=== PATIENT | male | born 1950 | race Caucasian/White ===

== ENCOUNTER 2016-09-21 17:20 | Observation (INO) | payer OTHER ==
[2016-09-21] MEDS ORDERED: Sodium Chloride 0.9% 1000 ML 1,000 ML IV STA (17:49)
[2016-09-21] MEDS ORDERED: TYLENOL 325 MG PO ONE (17:49)
[2016-09-21] MEDS ORDERED: SUBLIMAZE 100 MCG/2 ML IV ONE (17:49)
[2016-09-21] MEDS ORDERED: ROCEPHIN 1 Gm-D5w 50 ml Bag** 50 ML IV ONE ×2 (17:52→18:01)
[2016-09-21] MEDS ORDERED: Sodium Chloride 0.9% 1000 ML 1,000 ML ONE (17:55)
[2016-09-21] MEDS ORDERED: SUBLIMAZE 100 MCG/2 ML ONE (17:55)
[2016-09-21] MEDS ORDERED: TYLENOL 325 MG ONE (17:55)
--- NOTE | 2016-09-21 18:01 | ERPHSYRPT ---
- History of Present Illness Time Seen by Provider: 09/21/16 17:41 Source: patient (Poor Historian) Patient Subjective Stated Complaint: PT IS POOR HISTORIAN, AND STATES HE HAS HAD PAIN FOR A WHILE NOW, PAIN TO NECK,LEFT HIP,BOTH KNEES, WITH FEVER FOR OVER 2 MONTHS OFF AND ON, DRY HEAVES Triage Nursing Assessment: PT ALERT, DISHOVLED, SKIN W/D PINK,HAS TREMORS TO BODY WHICH PT STATES IS NORMAL FOR HIM. MOVES ALL EXT WELL, NO EDEMA NOTED Physician History: CC: chills HX: 66 y/o patient without a local doctor. He is a vague historian. 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 He uses THC but none in past week. He has body aches with neck pain, hip pain. He has chills. Maybe fever. No fall or injury. Some cough. He has weight loss. No hemoptysis. No abd pain. He is shaky. Timing/Duration: week(s) Severity: severe Allergies/Adverse Reactions: No Known Drug Allergies Allergy (Verified 09/21/16 17:43) Home Medications: No Home Meds 05/26/15 [History] Hx Tetanus, Diphtheria Vaccination/Date Given: No Hx Influenza Vaccination/Date Given: No Hx Pneumococcal Vaccination/Date Given: No Immunizations Up to Date: Yes - Review of Systems Constitutional: Fever, Chills, Malaise, Weakness Eyes: No Symptoms Ears, Nose, & Throat: No Throat Pain Respiratory: Cough (minimal), No Dyspnea Cardiac: No Chest Pain Abdominal/Gastrointestinal: No Abdominal Pain, No Nausea, No Vomiting, No Diarrhea Genitourinary Symptoms: Hesitancy, No Dysuria, No Hematuria, No Incontinence, No Flank Pain, No Testicle Pain Musculoskeletal: Neck Pain, No Back Pain, No Fall, No Injury Skin: No Rash Neurological: No Focal Weakness, No Headache, No Parasthesia All Other Systems: Reviewed and Negative - Past Medical History Neurological History: No Pertinent History ENT History: No Pertinent History Cardiac History: No Pertinent History Respiratory History: COPD Endocrine Medical History: No Pertinent History Musculoskeletal History: No Pertinent History GI Medical History: No Pertinent History History: No Pertinent History Psycho-Social History: Anxiety Male Reproductive Disorders: No Pertinent History - Past Surgical History Past Surgical History: No - Social History Smoking Status: Current every day smoker How long have you smoked: 45 yrs Exposure to second hand smoke: Yes Drug Use: marijuana Patient Lives Alone: Yes - Nursing Vital Signs Nursing Vital Signs: Initial Vital Signs Temperature 102.3 F Temperature Source Oral Pulse Rate 107 Respiratory Rate 16 Blood Pressure [Right Arm] 140/79 Pain Intensity 4 - Physical Exam General Appearance: alert, cachetic, other (shaky) Eye Exam: PERRL/EOMI, No scleral icterus Ears, Nose, Throat Exam: normal ENT inspection, moist mucous membranes Neck Exam: normal inspection, non-tender, supple, No meningismus Respiratory Exam: diminished breath sounds Cardiovascular Exam: regular rate/rhythm, No murmur, No friction rub, No gallop Gastrointestinal/Abdomen Exam: soft, No tenderness, No distention, No mass, No guarding Male Genitalia Exam: normal genitalia, prostate enlargement (rather large and tender but smooth), No testicular tenderness Rectal Exam: normal rectal tone Back Exam: No CVA tenderness, No vertebral tenderness Extremity Exam: normal inspection, normal range of motion Neurologic Exam: alert, oriented x 3, cooperative, hvac technician II-XII nml as tested, sensation nml, No motor deficits Skin Exam: other (hot), No rash SpO2 Interpretation: normal SpO2: 95 Oxygen Delivery: Room Air - Course Nursing assessment & vital signs reviewed: Yes EKG Interpreted by Me: RATE (105), Sinus Tach, Q-wave (inferior), Non-specific ST Changes - Radiology Exams cxr X-ray Interpretation: Reviewed by me (COPD, no pneumonia) Ordered Tests: Active Orders 24 hr Category Date Time Status Clean Catch Urine Specimen STAT Care 09/21/16 17:49 Active EKG-ER Only STAT Care 09/21/16 17:49 Active IV Insertion STAT Care 09/21/16 17:49 Active CHEST 2 VIEWS (PA AND LAT) Stat Exams 09/21/16 17:50 Taken BLOOD CULTURE Stat Lab 09/21/16 18:15 Received CBC W DIFF Stat Lab 09/21/16 18:10 Completed CMP Stat Lab 09/21/16 18:10 Completed CULTURE,URINE Stat Lab 09/21/16 17:49 Ordered Ethyl Alcohol,Urine Stat Lab 09/21/16 17:58 Completed Lactic Acid Stat Lab 09/21/16 17:49 Completed Manual Differential NC Stat Lab 09/21/16 18:10 Completed PROTIME WITH INR Stat Lab 09/21/16 18:10 Completed PTT Stat Lab 09/21/16 18:10 Completed TROPONIN Stat Lab 09/21/16 18:10 Completed UA W/ MICROSCOPIC Stat Lab 09/21/16 17:49 Completed Urine Triage Profile Stat Lab 09/21/16 17:58 Completed Medication Summary Discontinued Medications Generic Name Dose Route Start Last Admin Trade Name Lory PRN Reason Stop Dose Admin Acetaminophen 650 mg 09/21/16 17:49 09/21/16 17:59 Tylenol 325 Mg PO 09/21/16 17:50 650 mg STAT ONE Administration Acetaminophen Confirm 09/21/16 17:55 Tylenol 325 Mg Administered 09/21/16 17:56 Dose 650 mg .ROUTE .STK-MED ONE Fentanyl Citrate 50 mcg 09/21/16 17:49 09/21/16 17:59 Sublimaze 100 Mcg/2 Ml IV 09/21/16 17:50 50 mcg STAT ONE Administration Fentanyl Citrate Confirm 09/21/16 17:55 Sublimaze 100 Mcg/2 Ml Administered 09/21/16 17:56 Dose 100 mcg .ROUTE .STK-MED ONE Hydromorphone HCl 1 mg 09/21/16 18:48 09/21/16 19:24 Hydromorphone 1 Mg/Ml Ampule IV 09/21/16 18:49 1 mg STAT ONE Administration Hydromorphone HCl Confirm 09/21/16 19:06 Hydromorphone 1 Mg/Ml Ampule Administered 09/21/16 19:07 Dose 1 mg .ROUTE .STK-MED ONE Sodium Chloride 1,000 mls @ 999 mls/hr 09/21/16 17:49 09/21/16 17:59 Sodium Chloride 0.9% 1000 Ml IV 09/21/16 18:49 999 mls/hr .Q1H1M STA Administration Ceftriaxone Sodium/Dextrose 50 mls @ 100 mls/hr 09/21/16 17:52 09/21/16 18:04 Rocephin 1 Gm-D5w 50 Ml Bag IV 09/21/16 18:21 100 mls/hr STAT ONE Administration Sodium Chloride Confirm 09/21/16 17:55 Sodium Chloride 0.9% 1000 Ml Administered 09/21/16 17:56 Dose 1,000 mls @ ud .ROUTE .STK-MED ONE Ceftriaxone Sodium/Dextrose Confirm 09/21/16 18:01 Rocephin 1 Gm-D5w 50 Ml Bag Administered 09/21/16 18:02 Dose 50 mls @ IV .STK-MED ONE Lab/Rad Data: Laboratory Result Diagrams 09/21/16 18:10 09/21/16 18:10 Laboratory Results 09/21/16 09/21/16 09/21/16 Range/Units 18:10 18:10 18:10 WBC 7.6 (4.0-10.5) K/mm3 RBC 4.21 (4.1-5.6) M/mm3 Hgb 13.1 (12.5-18.0) gm/dl Hct 36.9 L (42-50) % MCV 87.6 (78-100) fl MCH 31.1 (26-32) pg MCHC 35.5 (32-36) g/dl RDW 13.2 (11.5-14.0) % Plt Count 54 L (150-450) K/mm3 MPV 13.5 H (6-9.5) fl INR 1.09 (0.8-3.0) APTT 31.1 (24.1-36.1) SECONDS Sodium 121 L (136-145) mEq/L Potassium 4.3 (3.5-5.1) mEq/L Chloride 87 L (98-107) mEq/L Carbon Dioxide 26.1 (21-32) mEq/L Anion Gap 12.1 (5-15) MEQ/L BUN 18 (9-20) mg/dL Creatinine 1.02 (0.55-1.30) mg/dl Estimated GFR > 60 ML/MIN Glucose 123 H (70-110) MG/DL Lactic Acid (0.4-2.0) Calcium 8.4 L (8.5-10.1) mg/dL Total Bilirubin 0.7 (0.2-1.0) mg/dL AST 57 H (15-37) U/L ALT 38 (12-78) U/L Alkaline Phosphatase 71 (46-116) U/L Troponin I < 0.017 (0.000-0.056) ng/ml Serum Total Protein 6.2 L (6.4-8.2) gm/dL Albumin 2.9 L (3.4-5.0) g/dL Ur Collection Type Urine Color (YELLOW) Urine Appearance (CLEAR) Urine pH (5-6) Ur Specific [place] (1.005-1.025) Urine Protein (Negative) Urine Glucose (UA) (NEGATIVE) mg/dL Urine Ketones (NEGATIVE) Urine Nitrite (NEGATIVE) Urine Bilirubin (NEGATIVE) Urine Urobilinogen (0-1) mg/dL Urine WBC (Auto) (NEGATIVE) Urine RBC (Auto) (0-5) Vladimir/ul Urine Microscopic RBC (0-2) /HPF Urine Microscopic WBC (0-5) /HPF Ur Epithelial Cells (FEW) /HPF Urine Bacteria (NEGATIVE) /HPF Urine Opiates Level (NEGATIVE) Ur Methadone (NEGATIVE) Urine Barbiturates (NEGATIVE) Ur Phencyclidine (PCP) (NEGATIVE) Urine Amphetamine (NEGATIVE) U Benzodiazepine Level (NEGATIVE) Urine Cocaine (NEGATIVE) Urine Marijuana (THC) (NEGATIVE) Urine Ethyl Alcohol (0.00-20) mg/dl Specimen Received 09/21/16 09/21/16 09/21/16 Range/Units 17:58 17:58 17:49 WBC (4.0-10.5) K/mm3 RBC (4.1-5.6) M/mm3 Hgb (12.5-18.0) gm/dl Hct (42-50) % MCV (78-100) fl MCH (26-32) pg MCHC (32-36) g/dl RDW (11.5-14.0) % Plt Count (150-450) K/mm3 MPV (6-9.5) fl INR (0.8-3.0) APTT (24.1-36.1) SECONDS Sodium (136-145) mEq/L Potassium (3.5-5.1) mEq/L Chloride (98-107) mEq/L Carbon Dioxide (21-32) mEq/L Anion Gap (5-15) MEQ/L BUN (9-20) mg/dL Creatinine (0.55-1.30) mg/dl Estimated GFR ML/MIN Glucose (70-110) MG/DL Lactic Acid 1.4 (0.4-2.0) Calcium (8.5-10.1) mg/dL Total Bilirubin (0.2-1.0) mg/dL AST (15-37) U/L ALT (12-78) U/L Alkaline Phosphatase (46-116) U/L Troponin I (0.000-0.056) ng/ml Serum Total Protein (6.4-8.2) gm/dL Albumin (3.4-5.0) g/dL Ur Collection Type Urine Color (YELLOW) Urine Appearance (CLEAR) Urine pH 7.0 (5-6) Ur Specific [place] (1.005-1.025) Urine Protein (Negative) Urine Glucose (UA) (NEGATIVE) mg/dL Urine Ketones (NEGATIVE) Urine Nitrite (NEGATIVE) Urine Bilirubin (NEGATIVE) Urine Urobilinogen (0-1) mg/dL Urine WBC (Auto) (NEGATIVE) Urine RBC (Auto) (0-5) Vladimir/ul Urine Microscopic RBC (0-2) /HPF Urine Microscopic WBC (0-5) /HPF Ur Epithelial Cells (FEW) /HPF Urine Bacteria (NEGATIVE) /HPF Urine Opiates Level NEG. (NEGATIVE) Ur Methadone NEG. (NEGATIVE) Urine Barbiturates NEG. (NEGATIVE) Ur Phencyclidine (PCP) NEG. (NEGATIVE) Urine Amphetamine NEG. (NEGATIVE) U Benzodiazepine Level NEG. (NEGATIVE) Urine Cocaine NEG. (NEGATIVE) Urine Marijuana (THC) POS. (NEGATIVE) Urine Ethyl Alcohol < 3 (0.00-20) mg/dl Specimen Received 09/21/16 Range/Units 17:49 WBC (4.0-10.5) K/mm3 RBC (4.1-5.6) M/mm3 Hgb (12.5-18.0) gm/dl Hct (42-50) % MCV (78-100) fl MCH (26-32) pg MCHC (32-36) g/dl RDW (11.5-14.0) % Plt Count (150-450) K/mm3 MPV (6-9.5) fl INR (0.8-3.0) APTT (24.1-36.1) SECONDS Sodium (136-145) mEq/L Potassium (3.5-5.1) mEq/L Chloride (98-107) mEq/L Carbon Dioxide (21-32) mEq/L Anion Gap (5-15) MEQ/L BUN (9-20) mg/dL Creatinine (0.55-1.30) mg/dl Estimated GFR ML/MIN Glucose (70-110) MG/DL Lactic Acid (0.4-2.0) Calcium (8.5-10.1) mg/dL Total Bilirubin (0.2-1.0) mg/dL AST (15-37) U/L ALT (12-78) U/L Alkaline Phosphatase (46-116) U/L Troponin I (0.000-0.056) ng/ml Serum Total Protein (6.4-8.2) gm/dL Albumin (3.4-5.0) g/dL Ur Collection Type CLEAN CATCH Urine Color YELLOW (YELLOW) Urine Appearance CLEAR (CLEAR) Urine pH 7.0 (5-6) Ur Specific [place] 1.020 (1.005-1.025) Urine Protein 100 (Negative) Urine Glucose (UA) NEGATIVE (NEGATIVE) mg/dL Urine Ketones NEGATIVE (NEGATIVE) Urine Nitrite NEGATIVE (NEGATIVE) Urine Bilirubin NEGATIVE (NEGATIVE) Urine Urobilinogen 1 (0-1) mg/dL Urine WBC (Auto) NEGATIVE (NEGATIVE) Urine RBC (Auto) SMALL (0-5) Vladimir/ul Urine Microscopic RBC 0-2 (0-2) /HPF Urine Microscopic WBC 0-2 (0-5) /HPF Ur Epithelial Cells RARE (FEW) /HPF Urine Bacteria RARE (NEGATIVE) /HPF Urine Opiates Level (NEGATIVE) Ur Methadone (NEGATIVE) Urine Barbiturates (NEGATIVE) Ur Phencyclidine (PCP) (NEGATIVE) Urine Amphetamine (NEGATIVE) U Benzodiazepine Level (NEGATIVE) Urine Cocaine (NEGATIVE) Urine Marijuana (THC) (NEGATIVE) Urine Ethyl Alcohol (0.00-20) mg/dl Specimen Received 09/21/16 1749 - Progress Progress Note: 09/21/16 18:03 Rectal temp 103. He likely has prostatitis or sepsis. Cultures ordered. Workup ordered. 09/21/16 19:29 Pt hyponatremic. Clinically has sepsis but labs reassuring. Called Dr Olena Lopez ( oc) and will place in observation. Counseled pt/family regarding: lab results, diagnosis, need for follow-up, rad results - Departure Time of Disposition: 19:30 Departure Disposition: Observation Clinical Impression: Fever, Sepsis, Hyponatremia Condition: Fair Critical Care Time: No
[2016-09-21 18:23] LABS: Mean Cell Volume 87.6 fl (78-100); Mean Corpuscular Hemoglobin 31.1 pg (26-32); Mean Platelet Volume 13.5 fl (6-9.5); Platelet Count 54 K/mm3 (150-450); Red Blood Count 4.21 M/mm3 (4.1-5.6); Red Cell Distribution Width 13.2 % (11.5-14.0); White Blood Count 7.6 K/mm3 (4.0-10.5)
[2016-09-21 18:36] LABS: INR 1.09 (0.8-3.0); PROTIME 12.2 SECONDS (8.83-12.87)
[2016-09-21 18:39] LABS: PTT 31.1 SECONDS (24.1-36.1)
[2016-09-21 18:47] LABS: ALBUMIN 2.9 g/dL (3.4-5.0); ALKALINE PHOSPHATASE 71 U/L (46-116); ANION GAP 12.1 MEQ/L (5-15); BILIRUBIN,TOTAL 0.7 mg/dL (0.2-1.0); BLOOD UREA NITROGEN 18 mg/dL (9-20); CHLORIDE 87 mEq/L (98-107); Carbon Dioxide 26.1 mEq/L (21-32); Glucose 123 MG/DL (70-110); Potassium 4.3 mEq/L (3.5-5.1); SGOT/AST 57 U/L (15-37); SGPT/ALT 38 U/L (12-78); SODIUM 121 mEq/L (136-145); Total Protein 6.2 gm/dL (6.4-8.2)
[2016-09-21] MEDS ORDERED: Hydromorphone 1 mg/ml Ampule IV ONE (18:48)
[2016-09-21 18:50] LABS: Collection Type CLEAN CATCH
[2016-09-21 18:51] LABS: Bacteria RARE /HPF (NEGATIVE); COMPLETE URINE MICROSCOPIC? YES; Epithelial Cells RARE /HPF (FEW); WBC 0-2 /HPF (0-5)
[2016-09-21 18:52] LABS: TROPONIN < 0.017 ng/ml (0.000-0.056)
[2016-09-21] MEDS ORDERED: Hydromorphone 1 mg/ml Ampule ONE (19:06)
[2016-09-21 19:59] LABS: ATYPICAL LYMPHS 8 %; Total Cells Counted 100
[2016-09-21 20:00] LABS: Platelet Estimate DECREASED (NORMAL)
[2016-09-21] MEDS ORDERED: TYLENOL 325 MG PO PRN (20:07)
[2016-09-21] MEDS: Sodium Chloride 0.9% 1000 ML 1,000 ML IV SCH (20:16)
[2016-09-22] MEDS: MORPHINE SULFATE 4 MG INJ IV PRN ×4 (00:33→23:35)
[2016-09-22 06:04] LABS: ANION GAP 10.2 MEQ/L (5-15); BLOOD UREA NITROGEN 13 mg/dL (9-20); CHLORIDE 92 mEq/L (98-107); Carbon Dioxide 26.4 mEq/L (21-32); Glucose 100 MG/DL (70-110); Potassium 3.9 mEq/L (3.5-5.1); SODIUM 125 mEq/L (136-145)
[2016-09-22 06:06] LABS: Mean Cell Volume 88.1 fl (78-100); Mean Corpuscular Hemoglobin 30.9 pg (26-32); Mean Platelet Volume 13.1 fl (6-9.5); Platelet Count 51 K/mm3 (150-450); Red Blood Count 3.85 M/mm3 (4.1-5.6); Red Cell Distribution Width 13.2 % (11.5-14.0); White Blood Count 6.8 K/mm3 (4.0-10.5)
[2016-09-22 06:33] LABS: Total Cells Counted 100
[2016-09-22 06:35] LABS: ANISOCYTOSIS 1+; Platelet Estimate DECREASED (NORMAL); Poikilocytosis 1+
[2016-09-22] MEDS: Sodium Chloride 0.9% 1000 ML 1,000 ML IV SCH ×2 (07:29→23:53)
--- NOTE | 2016-09-22 08:23 | PCM.HP ---
History of Present Illness - Chief Complaint Chief Complaint: fever, weakness Date: 09/22/16 History of Present Illness: is a 66 year old male. who is a very poor historian it appears but states he thinks he has been having worse back ache and hip pain and shoulder pain for the last 3 months and thinks he has had fevers for that long too. He states he intermittently had some trouble eating. He is unable to state what was different yesterday to bring him in. He denies any current, cough, chest pain, rash, enlarged nodules or trouble urinating. He does admit to significant alcohol intake in the past but denies any in several years. He has had recent tick bites - Review of Systems Constitutional: Fever, Chills, Fatigue, Lethargy Eyes: No Symptoms Ears, Nose, & Throat: No Symptoms Respiratory: No Cough, No Short Of Breath Cardiac: No Chest Pain, No Edema, No Syncope Abdominal/Gastrointestinal: No Abdominal Pain, No Nausea, No Vomiting, No Diarrhea Genitourinary Symptoms: No Dysuria Musculoskeletal: Arthralgias, Back Pain, No Neck Pain Skin: No Rash Neurological: No Dizziness, No Focal Weakness, No Sensory Changes Psychological: No Symptoms Endocrine: No Symptoms Hematologic/Lymphatic: No Symptoms Immunological/Allergic: No Symptoms Medications & Allergies Home Medications: Home Medication List Acetaminophen 325 mg [Tylenol 325 mg] 650 mg PO Q4HPRN PRN 09/21/16 [ History Confirmed 09/21/16] Allergies/Adverse Reactions: Allergies Allergy/AdvReac Type Severity Reaction Status Date / Time No Known Drug Allergies Allergy Verified 09/21/16 17:43 - Past Medical History Neurological History: No Pertinent History ENT History: No Pertinent History Cardiac History: No Pertinent History Respiratory History: COPD Endocrine Medical History: No Pertinent History Musculoskelatal History: No Pertinent History GI Medical History: No Pertinent History History: No Pertinent History Pyscho-Social History: Anxiety Male Reproductive Disorders: No Pertinent History - Past Surgical History Past Surgical History: No - Social History Smoking Status: Current every day smoker How long have you smoked: 50+years Exposure to second hand smoke: Yes Alcohol: None (previous heavy intake none in years) Drug Use: marijuana - Physical Exam Vital Signs: Vital Signs - 24 hr Temp Pulse Resp BP Pulse Ox 09/22/16 07:56 98.3 F 99 H 22 122/78 96 09/22/16 04:00 98.3 F 92 H 24 121/78 93 L 09/22/16 00:00 98.3 F 89 25 H 129/71 98 09/21/16 20:24 100.5 F 101 H 18 132/72 94 L 09/21/16 19:32 90 16 132/78 92 L 09/21/16 19:30 95 09/21/16 18:38 107 H 16 140/79 97 09/21/16 17:48 102.3 F 09/21/16 17:34 99.8 F 107 H 18 132/89 95 General Appearance: anxiety, other (he is fidgeting constatantly moving in the bed with a tremor bilateral hands.) Neurologic Exam: alert, oriented x 3, cooperative Eye Exam: PERRL/EOMI, No scleral icterus, No pale conjunctivae Ears, Nose, Throat Exam: moist mucous membranes Neck Exam: non-tender, supple Respiratory Exam: normal breath sounds, lungs clear, No respiratory distress Cardiovascular Exam: regular rate/rhythm, normal heart sounds, normal peripheral pulses, No murmur, No edema Gastrointestinal/Abdomen Exam: soft, normal bowel sounds, No tenderness, No distention Extremity Exam: normal inspection, No calf tenderness, No pedal edema Skin Exam: warm, dry, No rash Results - Labs Lab/Micro Results: Lab Results-Last 24 Hours 09/22/16 09/22/16 Range/Units 05:25 05:25 WBC 6.8 (4.0-10.5) K/mm3 RBC 3.85 L (4.1-5.6) M/mm3 Hgb 11.9 L (12.5-18.0) gm/dl Hct 33.9 L (42-50) % MCV 88.1 (78-100) fl MCH 30.9 (26-32) pg MCHC 35.1 (32-36) g/dl RDW 13.2 (11.5-14.0) % Plt Count 51 L (150-450) K/mm3 MPV 13.1 H (6-9.5) fl Segmented Neutrophils 61 (36.-66.) % Lymphocytes (Manual) 34 (24-44) % Monocytes (Manual) 5 (0.0-12.0) % Differential Comment ABNORMAL Platelet Estimate DECREASED (NORMAL) Poikilocytosis 1+ Anisocytosis 1+ Sodium 125 L (136-145) mEq/L Potassium 3.9 (3.5-5.1) mEq/L Chloride 92 L (98-107) mEq/L Carbon Dioxide 26.4 (21-32) mEq/L Anion Gap 10.2 (5-15) MEQ/L BUN 13 (9-20) mg/dL Creatinine 0.79 (0.55-1.30) mg/dl Estimated GFR > 60 ML/MIN Glucose 100 (70-110) MG/DL Calcium 8.0 L (8.5-10.1) mg/dL Assessment/Plan (1) Hyponatremia Current Visit: Yes Status: Acute Assessment & Plan: appears hypovolemic continue slow rehydration improved overnight monitor Na Code(s): E87.1 - HYPO-OSMOLALITY AND HYPONATREMIA (2) Fever Current Visit: Yes Status: Acute Assessment & Plan: unclear etiology rectal exam in ED was positive for large prostate with no nodules possible prostatitis check HIV, GC, CT repeat labs in am continue coverage with Rocephin afebrile since 8pm last night given pains in back and hips check x-ray but movement is all normal and there is no point tenderness. His history is very tangential making it difficult to find a clear starting time and symptom history however there is potential for tick born disease and the thrombocytopenia also could be a concern with this continue the Rocephin for now as he is clinically appears to have been improving and monitor and recheck labs will hold off specific serologies now while trying to tease out the history a little further. Code(s): R50.9 - FEVER, UNSPECIFIED (3) COPD (chronic obstructive pulmonary disease) Current Visit: Yes Status: Chronic (4) Thrombocytopenia Current Visit: Yes Status: Acute Assessment & Plan: repeat am lab
--- NOTE | 2016-09-22 08:47 | XRAY ---
Indication: Fever, cough, and weight loss. Comparison: May 26, 2015. 2 view chest unchanged again hyperinflated with scattered calcified granulomas and right apical fibrosis/scarring. Heart is not enlarged. Bony thorax intact again with spinal degenerative changes. Impression: Stable nonacute chest with chronic features.
--- NOTE | 2016-09-22 09:28 | XRAY ---
Indication: Lumbar/hip pain. Fever. Comparison: None 2 views of the left and right hip demonstrates a few pelvic phleboliths. No other bony, articular, or soft tissue abnormalities.
--- NOTE | 2016-09-22 09:36 | XRAY ---
Indication: Lumbar and hip pain. Fever. Comparison: None 5 views of the lumbar spine demonstrate 5 lumbar vertebral segments in normal alignment with minimal multilevel anterior endplate spurring. Disc spaces maintained. No acute fracture, subluxation, or pars interarticularis defect. Minimal aortic calcifications. Impression: Nonacute lumbar spine with chronic features.
[2016-09-22] MEDS: ROCEPHIN 1 Gm-D5w 50 ml Bag** 50 ML IV SCH (10:07)
[2016-09-22] MEDS: ENOXAPARIN SODIUM SQ SCH (10:12)
[2016-09-22 18:07] LABS: CHLAMYDIA URINE NEGATIVE; GC URINE NEGATIVE
[2016-09-23] MEDS: MORPHINE SULFATE 4 MG INJ IV PRN ×4 (03:56→22:56)
[2016-09-23 04:16] LABS: Hepatits C Antibody by EIA Non Reactive (Non Reactive)
[2016-09-23 06:05] LABS: ANION GAP 9.5 MEQ/L (5-15); BLOOD UREA NITROGEN 9 mg/dL (9-20); CHLORIDE 91 mEq/L (98-107); Carbon Dioxide 27.7 mEq/L (21-32); Glucose 93 MG/DL (70-110); Potassium 3.7 mEq/L (3.5-5.1); SODIUM 125 mEq/L (136-145)
[2016-09-23 06:11] LABS: Mean Cell Volume 87.9 fl (78-100); Mean Platelet Volume 13.2 fl (6-9.5); Platelet Count 49 K/mm3 (150-450); Red Blood Count 3.79 M/mm3 (4.1-5.6); Red Cell Distribution Width 13.1 % (11.5-14.0); White Blood Count 6.4 K/mm3 (4.0-10.5)
[2016-09-23 06:15] LABS: Mean Corpuscular Hemoglobin 30.8 pg (26-32)
[2016-09-23 06:26] LABS: Hepatitis B Surface Ab.Quant <3.50 mIU/mL (0.00-8.49); Hepatits B Sur Ag Screen Non Reactive (Non Reactive)
--- NOTE | 2016-09-23 08:14 | PCM.NOTE ---
Date and Time: 09/23/16 08 Subjective Assessment: still some pains in hip and back otherwise feeling ok no fevers overnight still some weakness no new symptoms. Objective Exam General Appearance: no apparent distress Neurologic Exam: alert, oriented x 3, nml cerebellar function Skin Exam: warm, dry, No rash Eye Exam: PERRL, No scleral icterus Ears, Nose, Throat Exam: moist mucous membranes Neck Exam: non-tender, supple Respiratory Exam: normal breath sounds, lungs clear Cardiovascular Exam: regular rate/rhythm, normal heart sounds, No edema Gastrointestinal/Abdomen Exam: soft, normal bowel sounds, No tenderness Extremity Exam: normal inspection, No pedal edema OBJECTIVE DATA Vital Signs: Vital Signs - 24 hr Temp Pulse Resp BP Pulse Ox 09/23/16 07:05 98.7 F 90 20 131/81 98 09/23/16 04:00 98.5 F 99 H 15 116/77 93 L 09/23/16 00:00 98.9 F 93 H 16 122/76 96 09/22/16 20:00 99.0 F 98 H 15 141/77 95 09/22/16 16:00 98.5 F 82 20 106/59 97 09/22/16 12:00 98.1 F 94 H 20 107/70 96 Pain Assessment - Last Documented Pain Intensity 6 Pain Scale Used 0-10 Pain Scale Intake and Output: Intake & Output 09/20/16 09/21/16 09/22/16 09/23/16 11:59 11:59 11:59 11:59 Intake Total 1262 2122 Output Total 550 1100 Balance 712 1022 Weight 63.639 kg Lab Results: Lab Results-Last 24 Hours 09/22/16 09/22/16 09/22/16 Range/Units 08:21 08:46 08:46 WBC (4.0-10.5) K/mm3 RBC (4.1-5.6) M/mm3 Hgb (12.5-18.0) gm/dl Hct (42-50) % MCV (78-100) fl MCH (26-32) pg MCHC (32-36) g/dl RDW (11.5-14.0) % Plt Count (150-450) K/mm3 MPV (6-9.5) fl Sodium (136-145) mEq/L Potassium (3.5-5.1) mEq/L Chloride (98-107) mEq/L Carbon Dioxide (21-32) mEq/L Anion Gap (5-15) MEQ/L BUN (9-20) mg/dL Creatinine (0.55-1.30) mg/dl Estimated GFR ML/MIN Glucose (70-110) MG/DL Calcium (8.5-10.1) mg/dL RPR Nonreactive (Nonreactive) Ur Chlamydia DNA Probe NEGATIVE Urine GC DNA Probe NEGATIVE Hep Bs Antigen Non Reactive (Non Reactive) Hep Bs Antibody, Quant <3.50 (0.00-8.49) mIU/mL Hepatitis C Antibody Non Reactive (Non Reactive) HIV Ag/Ab Combo Qual Pending HIV Ag/Ab Interpret Pending HIV 1&2 Antibody Pending Slides for Path Review 09/23/16 09/23/16 Range/Units 05:13 05:13 WBC 6.4 (4.0-10.5) K/mm3 RBC 3.79 L (4.1-5.6) M/mm3 Hgb 11.7 L (12.5-18.0) gm/dl Hct 33.3 L (42-50) % MCV 87.9 (78-100) fl MCH 30.8 (26-32) pg MCHC 35.1 (32-36) g/dl RDW 13.1 (11.5-14.0) % Plt Count 49 L (150-450) K/mm3 MPV 13.2 H (6-9.5) fl Sodium 125 L (136-145) mEq/L Potassium 3.7 (3.5-5.1) mEq/L Chloride 91 L (98-107) mEq/L Carbon Dioxide 27.7 (21-32) mEq/L Anion Gap 9.5 (5-15) MEQ/L BUN 9 (9-20) mg/dL Creatinine 0.85 (0.55-1.30) mg/dl Estimated GFR > 60 ML/MIN Glucose 93 (70-110) MG/DL Calcium 7.9 L (8.5-10.1) mg/dL RPR (Nonreactive) Ur Chlamydia DNA Probe Urine GC DNA Probe Hep Bs Antigen (Non Reactive) Hep Bs Antibody, Quant (0.00-8.49) mIU/mL Hepatitis C Antibody (Non Reactive) HIV Ag/Ab Combo Qual HIV Ag/Ab Interpret HIV 1&2 Antibody Slides for Path Review YES Radiology Exams: Radiology Procedures Category Date Time Status HIP SUSY (4V) INCL PELV IF DONE Routine Exams 09/22/16 08:21 Completed LUMBAR COMPLETE (MIN 4 VIEWS) Routine Exams 09/22/16 08:21 Completed Assessment/Plan (1) Hyponatremia Current Visit: Yes Status: Acute Assessment & Plan: check urine Na, urea, creatinine, osmolality it appeared hypovolemic on arrival he reports he has craved salt his whole life and eats piles of it but recently tried to cut back to be healthier Code(s): E87.1 - HYPO-OSMOLALITY AND HYPONATREMIA (2) Fever Current Visit: Yes Status: Acute Assessment & Plan: afebrile for 36 hr now if remains afebrile will d/c home tomorrow if no new symptoms with 10 day coarse of doxy to cover for any potential tick born illness. Code(s): R50.9 - FEVER, UNSPECIFIED (3) COPD (chronic obstructive pulmonary disease) Current Visit: Yes Status: Chronic (4) Thrombocytopenia Current Visit: Yes Status: Acute Assessment & Plan: stable monitor further eval as outpatient
[2016-09-23] MEDS: ENOXAPARIN SODIUM SQ SCH (09:48)
[2016-09-23] MEDS: ROCEPHIN 1 Gm-D5w 50 ml Bag** 50 ML IV SCH (09:48)
[2016-09-23 10:09] LABS: Sodium, Urine 126.7 MMOL
[2016-09-23] MEDS: Sodium Chloride 0.9% 1000 ML 1,000 ML IV SCH ×2 (13:32→20:19)
[2016-09-23] MEDS ORDERED: Nicoderm CQ 21 MG TOP SCH ×2 (14:45→15:00)
[2016-09-23] MEDS ORDERED: Sodium Chloride 0.9% 1000 ML 2,000 ML IV STA (17:00)
[2016-09-23] MEDS: Flonase NASAL NS SCH (18:15)
[2016-09-24] MEDS: MORPHINE SULFATE 4 MG INJ IV PRN (03:15)
[2016-09-24 05:34] LABS: Mean Platelet Volume 12.6 fl (6-9.5); Platelet Count 53 K/mm3 (150-450); Red Blood Count 3.63 M/mm3 (4.1-5.6); Red Cell Distribution Width 13.5 % (11.5-14.0); White Blood Count 6.2 K/mm3 (4.0-10.5)
[2016-09-24 05:35] LABS: Urea Nitrogen Random Urine 519 mg/dL
[2016-09-24 05:37] LABS: Mean Corpuscular Hemoglobin 30.5 pg (26-32)
[2016-09-24 06:05] LABS: ANION GAP 9.5 MEQ/L (5-15); BLOOD UREA NITROGEN 9 mg/dL (9-20); CHLORIDE 96 mEq/L (98-107); Carbon Dioxide 28.6 mEq/L (21-32); Glucose 92 MG/DL (70-110); Potassium 3.7 mEq/L (3.5-5.1); SODIUM 130 mEq/L (136-145)
[2016-09-24 07:16] VITALS: BP 132/83; PULSE 78; O2SAT 97
--- NOTE | 2016-09-24 08:18 | PCM.DS ---
Discharge Summary Date of Admission: 09/21/16 20:06 Date of Discharge: 09/24/2016 Admitting Physician: JR OCONNOR Primary Care Provider: JR OCONNOR Allergies Allergies No Known Drug Allergies Allergy (Verified 09/21/16 17:43) Hospital Summary - Hospital Course Hospital Course: Mr. Dockery has no prior medical background but a previous history of alcohol and marijuana abuse but denied recent use of alcohol who presented with 3 months he stated of fever and arthralagias. He was unable to give specific time table or other symptoms or specific pain areas. He denied any rash but did say he has had multiple tick bites in the last month. He was found to be febrile, hyponatremic to 121 and have thrombocytopenia. Otherwise his labs and exam were rather unremarkable. He was started on Rocephin and iv hydration as he appeared hypovolemic but was only slow hydation at first. He remained afebrile after admission. His Na improved with just hydration from 121 to 130 at time of discharge his FeNa was 0.8%. We discussed need for further evaluation of his thrombocytopenia and hyponatremia f/u as an outpatient to rule out potential malignant cause to this. He is very anxious to go home as his symptoms have improved. Will have him complete a 10 day coarse of doxycycline with the fever and diffuse arthralagias and the thrombocytopenia to cover any potential tick born illness. - Vitals & Intake/Output Vital Signs: Vital Signs Temperature 98.1 F 09/24/16 07:15 Pulse Rate 78 09/24/16 07:15 Respiratory Rate 18 09/24/16 07:15 Blood Pressure 132/83 09/24/16 07:15 O2 Sat by Pulse Oximetry 97 09/24/16 07:15 Intake & Output: Intake & Output 09/21/16 09/22/16 09/23/16 09/24/16 11:59 11:59 11:59 11:59 Intake Total 1262 2122 2520 Output Total 550 1100 300 Balance 712 1022 2220 Weight 63.639 kg - Lab Result Diagrams: 09/24/16 05:15 09/24/16 05:15 Lab Results-Last 24 Hrs: Lab Results-Last 24 Hours 09/22/16 09/23/16 09/23/16 Range/Units 08:46 09:54 09:54 WBC (4.0-10.5) K/mm3 RBC (4.1-5.6) M/mm3 Hgb (12.5-18.0) gm/dl Hct (42-50) % MCV (78-100) fl MCH (26-32) pg MCHC (32-36) g/dl RDW (11.5-14.0) % Plt Count (150-450) K/mm3 MPV (6-9.5) fl Sodium (136-145) mEq/L Potassium (3.5-5.1) mEq/L Chloride (98-107) mEq/L Carbon Dioxide (21-32) mEq/L Anion Gap (5-15) MEQ/L BUN (9-20) mg/dL Creatinine (0.55-1.30) mg/dl Estimated GFR ML/MIN Glucose (70-110) MG/DL Calcium (8.5-10.1) mg/dL TSH 3rd Generation (0.358-3.740) mIU/L Urine Osmolality Pending Ur Random Creatinine 104.94 (30-125) MG/DL Ur Random Urea Nitrogn 519 mg/dL Urine Sodium 126.7 MMOL Hep Bs Antigen Non Reactive (Non Reactive) Hep Bs Antibody, Quant <3.50 (0.00-8.49) mIU/mL Hepatitis C Antibody Non Reactive (Non Reactive) HIV Ag/Ab Combo Qual Non Reactive (Non Reactive) HIV Ag/Ab Interpret See Result Note: HIV 1&2 Antibody Not Reportable Slides for Path Review 09/24/16 09/24/16 Range/Units 05:15 05:15 WBC 6.2 (4.0-10.5) K/mm3 RBC 3.63 L (4.1-5.6) M/mm3 Hgb 11.1 L (12.5-18.0) gm/dl Hct 32.3 L (42-50) % MCV 89.0 (78-100) fl MCH 30.5 (26-32) pg MCHC 34.4 (32-36) g/dl RDW 13.5 (11.5-14.0) % Plt Count 53 L (150-450) K/mm3 MPV 12.6 H (6-9.5) fl Sodium 130 L (136-145) mEq/L Potassium 3.7 (3.5-5.1) mEq/L Chloride 96 L (98-107) mEq/L Carbon Dioxide 28.6 (21-32) mEq/L Anion Gap 9.5 (5-15) MEQ/L BUN 9 (9-20) mg/dL Creatinine 0.74 (0.55-1.30) mg/dl Estimated GFR > 60 ML/MIN Glucose 92 (70-110) MG/DL Calcium 8.0 L (8.5-10.1) mg/dL TSH 3rd Generation 3.038 (0.358-3.740) mIU/L Urine Osmolality Ur Random Creatinine (30-125) MG/DL Ur Random Urea Nitrogn mg/dL Urine Sodium MMOL Hep Bs Antigen (Non Reactive) Hep Bs Antibody, Quant (0.00-8.49) mIU/mL Hepatitis C Antibody (Non Reactive) HIV Ag/Ab Combo Qual (Non Reactive) HIV Ag/Ab Interpret HIV 1&2 Antibody Slides for Path Review YES - Radiology Exams Ordered Rad Exams-Entire Visit: Radiology Procedures Category Date Time Status HIP SUSY (4V) INCL PELV IF DONE Routine Exams 09/22/16 08:21 Completed LUMBAR COMPLETE (MIN 4 VIEWS) Routine Exams 09/22/16 08:21 Completed - Procedures and Test Procedures and Tests throughout Hospitalization: Therapy Orders & Screens 09/21/16 20:52 Smoking Cessation Education ONCE Comment: Diagnosis: sepsis Smoking Status: Current every day smoker How long have you smoked: 50+years Do you dip or chew tobacco: No Discharge Exam General Appearance: no apparent distress, alert Neurologic Exam: oriented x 3, cooperative Skin Exam: warm, dry Eye Exam: No scleral icterus Ears, Nose, Throat Exam: moist mucous membranes Neck Exam: non-tender, supple Lymphatic Exam: No adenopathy Respiratory Exam: normal breath sounds, lungs clear Cardiovascular Exam: regular rate/rhythm, normal heart sounds Gastrointestinal/Abdomen Exam: soft, normal bowel sounds, No tenderness Extremity Exam: normal inspection, No parasthesia, No pedal edema Back Exam: normal inspection, No rash Final Diagnosis/Problem List - Final Discharge Diagnosis/Problem (1) Hyponatremia Current Visit: Yes Status: Acute (2) Fever Current Visit: Yes Status: Acute (3) COPD (chronic obstructive pulmonary disease) Current Visit: Yes Status: Chronic (4) Thrombocytopenia Current Visit: Yes Status: Acute - Discharge Discharge Date: 09/24/16 Disposition: Home, Self-Care Condition: Stable Prescriptions: New Doxycycline Hyclate 100 mg [Vibramycin 100 MG] 100 mg PO BID #20 tab Continue Acetaminophen 325 mg [Tylenol 325 mg] 650 mg PO Q4HPRN PRN PRN Reason: Pain And/Or Fever
[2016-09-24] MEDS: Flonase NASAL NS SCH (08:49)
[2016-09-24] MEDS: ENOXAPARIN SODIUM SQ SCH (08:50)
[2016-09-24 09:54] LABS: OSMOLALITY URINE 533 mOsm/kg
[2016-09-24] MEDS ORDERED: ROCEPHIN 1 Gm-D5w 50 ml Bag** 1 G/50 ML IVPB IV SCH (10:00)
== END 2016-09-24 09:13 | disposition home or self-care (01) ==
LOC: ED 17:20 → MED SURG 20:06
PROVIDERS: ADMIT Family Medicine; ATTEND Family Medicine
DX: E87.1 Hypo-osmolality and hyponatremia (principal); R50.9 Fever, unspecified; J44.9 Chronic obstructive pulmonary disease, unspecified; D69.6 Thrombocytopenia, unspecified; F41.9 Anxiety disorder, unspecified; Z72.0 Tobacco use
CPT/HCPCS: 36000; 36415; 71020; 72110; 73522; 80048; 80053; 80307; 80320; 81000; 82533; 82570; 83605; 83935; 83986; 84300; 84443; 84484; 84540; 85025; 85027; 85610; 85730; 86317; 86592; 86701; 86702; 86803; 87040; 87086; 87340; 87389; 87491; 87591; 87631; 93005; 94760; 96360; 96365; 96374; 96375; 99285; G0378; J0696; J1170; J1650; J2270; J3010; A9270-GY